=== PATIENT | male | born 1940 | race Caucasian/White ===

== ENCOUNTER 2019-02-27 06:51 | Day surgery (SDC) | payer MEDICARE, OTHER ==
[2019-02-26 12:13] LABS: BASOPHILS % (AUTO) 0.3 % (0-1); EOSINOPHILS # (AUTO) 0.1 X10'3 (0-0.9); EOSINOPHILS % (AUTO) 1.2 % (0-6); HEMATOCRIT 47.4 % (42.0-52.0); LYMPHOCYTES # (AUTO) 0.5 X10'3 (1.1-4.8); LYMPHOCYTES % (AUTO) 10.5 % (21-51); MEAN CORPUSCULAR HEMOGLOBIN 33.1 PG (27.0-31.0); MEAN CORPUSCULAR HGB CONC 33.8 g/dL (33.0-36.5); MEAN CORPUSCULAR VOLUME 97.9 FL (78-98); MEAN PLATELET VOLUME 7.8 FL (7.4-10.4); MONOCYTES # (AUTO) 0.4 X10'3 (0-0.9); MONOCYTES % (AUTO) 7.8 % (2-12); NEUTROPHILS # (AUTO) 3.8 X10'3 (1.8-7.7); NEUTROPHILS % (AUTO) 80.2 % (42-75); PLATELET COUNT 190 X10'3 (140-440); RED BLOOD COUNT 4.84 X10'6 (4.70-6.10); RED CELL DISTRIBUTION WIDTH 13.7 % (11.5-14.5); WHITE BLOOD COUNT 4.8 X10'3 (4.5-11.0)
[2019-02-26 12:23] LABS: ALBUMIN 3.7 G/DL (3.4-5.0); ANION GAP 6 (8-16); BLOOD UREA NITROGEN 16 MG/DL (7-18); BUN/CREATININE RATIO 13.3 (5.4-32.0); CALCIUM 8.8 MG/DL (8.5-10.1); CHLORIDE 106 MMOL/L (99-107); GLUCOSE 93 MG/DL (70-104); POTASSIUM 4.6 MMOL/L (3.5-5.1); SODIUM 142 MMOL/L (135-145); TOTAL CARBON DIOXIDE 30.1 MMOL/L (24-32); eGFR 58 ML/MIN
[~2019-02-27] VITALS: Ht 180.3 cm; Wt 79.1 kg
[2019-02-27] VITALS (12 sets, daily range): BP systolic 109–167; BP diastolic 70–101
[2019-02-27] MEDS ORDERED: amiodarone in dextrose, iso-osm 150mg/100ml bag IV ONE (07:10)
[2019-02-27] MEDS ORDERED: LORazepam 0.5 MG tablet PO ONE (07:10)
[2019-02-27] MEDS ORDERED: normal saline 1000ml 1,000 ML IV SCH (07:10)
[2019-02-27] MEDS ORDERED: atropine 0.1mg/ml 10ml syringe IV ONE (07:10)
[2019-02-27] MEDS ORDERED: diphenhydrAMINE 25mg capsule PO ONE (07:10)
[2019-02-27] MEDS ORDERED: MIDAZolam 5mg/ml 2ml vial IV ONE (07:25)
[2019-02-27] MEDS ORDERED: morphine 10mg/ml inj. IV ONE (07:25)
[2019-02-27] MEDS ORDERED: AMIO200T61 PO (08:06)
[2019-02-27] MEDS ORDERED: GLUC1TAB21 PO (08:06)
[2019-02-27] MEDS ORDERED: MULT-1085 PO (08:06)
[2019-02-27] MEDS ORDERED: CHOL200012 PO (08:06)
[2019-02-27] MEDS ORDERED: APIX2.5T PO (08:06)
[2019-02-27] MEDS ORDERED: MAGN400C PO (08:06)
[2019-02-27] MEDS ORDERED: OMEG1CAP13 PO (08:06)
[2019-02-27] MEDS ORDERED: ATOR10TA PO (08:06)
== END 2019-02-27 10:55 | disposition home or self-care (01) ==
LOC: SSTAY O 06:51
PROVIDERS: ATTEND Internal Medicine Cardiovascular Disease
DX: I48.1 Persistent atrial fibrillation (principal); I48.92 Unspecified atrial flutter; E78.5 Hyperlipidemia, unspecified; I49.5 Sick sinus syndrome; Z85.828 Personal history of other malignant neoplasm of skin; Z98.890 Other specified postprocedural states; Z79.899 Other long term (current) drug therapy; Z72.89 Other problems related to lifestyle
CPT/HCPCS: 36415; 80048; 85025; 85610; 92960; 93005; J0282; J0461; J2250; J2270; J7030; Q0163

== ENCOUNTER 2019-11-06 15:36 | Outpatient (CLI) | payer MEDICARE, OTHER ==
[~2019-11-06 15:36] MED LIST: AMIO200T61 PO; APIX2.5T PO; ATOR10TA PO; CHOL200012 PO; GLUC1TAB21 PO; MAGN400C PO; MULT-1085 PO; OMEG1CAP13 PO
[2019-11-06 16:21] LABS: TOTAL HEMOGLOBIN 14.6 G/dl (14.0-17.9)
== END 2019-11-06 23:59 | disposition home or self-care (01) ==
LOC: RT 15:36
PROVIDERS: ATTEND Internal Medicine Cardiovascular Disease
DX: I48.91 Unspecified atrial fibrillation (principal); K44.9 Diaphragmatic hernia without obstruction or gangrene; Z79.899 Other long term (current) drug therapy
CPT/HCPCS: 71046; 85018; 94010; 94727; 94729

== ENCOUNTER 2022-01-27 06:05 | Day surgery (SDC) | payer MEDICARE, OTHER ==
[2022-01-26 10:37] LABS: ALBUMIN 3.7 G/DL (3.4-5.0); ANION GAP 10 (8-16); BLOOD UREA NITROGEN 19 MG/DL (7-18); BUN/CREATININE RATIO 17.8 (5.4-32.0); CALCIUM 8.6 MG/DL (8.5-10.1); CHLORIDE 108 MMOL/L (99-107); CREATININE 1.07 MG/DL (0.60-1.10); GLUCOSE 96 MG/DL (70-104); POTASSIUM 4.6 MMOL/L (3.5-5.1); SODIUM 144 MMOL/L (135-145); TOTAL CARBON DIOXIDE 26.3 MMOL/L (24-32); eGFR 66 ML/MIN
[2022-01-26 10:42] LABS: BASOPHILS % (AUTO) 0.4 % (0-1); EOSINOPHILS % (AUTO) 0.7 % (0-6); HEMATOCRIT 39.9 % (42.0-52.0); HEMOGLOBIN 13.5 g/dl (14.0-17.9); LYMPHOCYTES # (AUTO) 0.6 X10'3 (1.1-4.8); LYMPHOCYTES % (AUTO) 12.8 % (21-51); MEAN CORPUSCULAR HGB CONC 33.8 g/dL (33.0-36.5); MEAN CORPUSCULAR VOLUME 97.7 FL (78-98); MEAN PLATELET VOLUME 7.1 FL (7.4-10.4); MONOCYTES # (AUTO) 0.4 X10'3 (0-0.9); MONOCYTES % (AUTO) 8.8 % (2-12); NEUTROPHILS # (AUTO) 3.8 X10'3 (1.8-7.7); NEUTROPHILS % (AUTO) 77.3 % (42-75); PLATELET COUNT 171 X10'3 (140-440); RED BLOOD COUNT 4.09 X10'6 (4.70-6.10); RED CELL DISTRIBUTION WIDTH 13.4 % (11.5-14.5); WHITE BLOOD COUNT 4.9 X10'3 (4.5-11.0)
[2022-01-26 10:48] LABS: APTT 24 SECONDS (22-32)
[2022-01-27] VITALS (10 sets, daily range): BP systolic 123–169; BP diastolic 67–87
[~2022-01-27] VITALS: Ht 180.3 cm; Wt 78.7 kg
[2022-01-27] MEDS ORDERED: LORazepam 0.5 MG tablet PO PRN (06:25)
[2022-01-27] MEDS ORDERED: diphenhydrAMINE 25mg capsule PO PRN (06:25)
[2022-01-27] MEDS ORDERED: normal saline 1,000 ML IV SCH (06:25)
[2022-01-27] MEDS ORDERED: LIDOcaine/PRILOcaine 5gm cream TP ONE (06:55)
[2022-01-27] MEDS ORDERED: CYAN1TAB65 SL (07:11)
[2022-01-27] MEDS ORDERED: DOCU-21 PO (07:11)
[2022-01-27] MEDS ORDERED: QUER1POW PO (07:11)
[2022-01-27] MEDS ORDERED: DIPH-907 PO (07:11)
[2022-01-27] MEDS ORDERED: VITA800012 PO (07:11)
[2022-01-27] MEDS ORDERED: SAW/1TAB2 PO (07:11)
[2022-01-27] MEDS ORDERED: LACT1CAP65 PO (07:11)
[2022-01-27] MEDS ORDERED: APIX5TAB3 PO (07:11)
[2022-01-27] MEDS ORDERED: ASCO500C17 PO (07:11)
[2022-01-27] MEDS ORDERED: UBID30CA11 PO (07:11)
[2022-01-27] MEDS ORDERED: [UNRECOGNIZED DRUG - CODE] PO (07:11)
[2022-01-27] MEDS ORDERED: VITA15LO2 PO (07:11)
[2022-01-27] MEDS ORDERED: heparin 1,000unit/ml 10ml vial 10 ML ONE (07:21)
[2022-01-27] MEDS ORDERED: nitroGLYCERIN-Tridil 50MG/D5W 250 ML IV ONE (07:21)
[2022-01-27] MEDS ORDERED: fentaNYL/PF 50MCG/1 ML 2ML syringe ONE (07:21)
[2022-01-27] MEDS ORDERED: midazolam 1 mg/ML 2ml injection ONE (07:21)
[2022-01-27] MEDS ORDERED: LIDOcaine 1%/PF 5ML 10 MG/ML VIAL ONE (07:21)
[2022-01-27] MEDS ORDERED: verapamil 2.5 mg/ml inj IV ONE (07:21)
[2022-01-27] MEDS ORDERED: iohexol 350MG/ML 100ml bottle IV ONE (07:22)
[2022-01-27] MEDS ORDERED: normal saline 1000ml 1,000 ML IV SCH (09:15)
== END 2022-01-27 12:45 | disposition home or self-care (01) ==
LOC: SSTAY O 06:05
PROVIDERS: ATTEND Internal Medicine Cardiovascular Disease
DX: R94.39 Abnormal result of other cardiovascular function study (principal); I25.10 Atherosclerotic heart disease of native coronary artery without angina pectoris; E78.5 Hyperlipidemia, unspecified; I48.91 Unspecified atrial fibrillation; I08.1 Rheumatic disorders of both mitral and tricuspid valves; I48.0 Paroxysmal atrial fibrillation; I49.5 Sick sinus syndrome; Z79.01 Long term (current) use of anticoagulants; Z79.899 Other long term (current) drug therapy; Z98.890 Other specified postprocedural states; Z82.49 Family history of ischemic heart disease and other diseases of the circulatory system
CPT/HCPCS: 36415; 76937; 80048; 85025; 85610; 85730; 93005; 93458; 99152; A6258; C1769; C1894; J1644; J2250; J3010; J3490; J7030; Q0163; Q9967; 99153; A4620; A5120; A6402

== ENCOUNTER 2024-02-28 07:00 | Day surgery (SDC) | payer MEDICARE ==
[2024-02-27 14:22] LABS: BASOPHILS % (AUTO) 0.4 % (0-1); EOSINOPHILS # (AUTO) 0.1 X10'3 (0-0.9); EOSINOPHILS % (AUTO) 1.4 % (0-6); HEMATOCRIT 39.8 % (42.0-52.0); HEMOGLOBIN 13.2 g/dl (14.0-17.9); LYMPHOCYTES # (AUTO) 0.8 X10'3 (1.1-4.8); LYMPHOCYTES % (AUTO) 12.6 % (21-51); MEAN CORPUSCULAR HEMOGLOBIN 31.8 PG (27.0-31.0); MEAN CORPUSCULAR VOLUME 96.3 FL (78-98); MEAN PLATELET VOLUME 7.2 FL (7.4-10.4); MONOCYTES # (AUTO) 0.5 X10'3 (0-0.9); MONOCYTES % (AUTO) 8.6 % (2-12); NEUTROPHILS # (AUTO) 4.6 X10'3 (1.8-7.7); PLATELET COUNT 216 X10'3 (140-440); RED BLOOD COUNT 4.14 X10'6 (4.70-6.10); RED CELL DISTRIBUTION WIDTH 15.2 % (11.5-14.5)
[2024-02-27 14:24] LABS: ALBUMIN 3.6 G/DL (3.4-5.0); ANION GAP 6 (8-16); BLOOD UREA NITROGEN 18 MG/DL (7-18); BUN/CREATININE RATIO 17.3 (10.0-20.0); CALCIUM 8.8 MG/DL (8.5-10.1); CHLORIDE 107 MMOL/L (99-107); CREATININE 1.04 MG/DL (0.60-1.10); GLUCOSE 105 MG/DL (70-104); POTASSIUM 4.4 MMOL/L (3.5-5.1); SODIUM 141 MMOL/L (135-145); TOTAL CARBON DIOXIDE 28.4 MMOL/L (24-32); eGFR 68 ML/MIN
[2024-02-27 14:27] LABS: PROTHROMBIN TIME 10.9 SECONDS (9.0-12.0)
[2024-02-28] VITALS (13 sets, daily range): BP systolic 93–161; BP diastolic 60–110; PULSE 44–97; RESP 16; TEMP 97.9; O2SAT 98–99
[~2024-02-28] VITALS: Ht 177.8 cm; Wt 78.2 kg
[~2024-02-28 07:00] MED LIST changes: +AMI200T PO; -AMIO200T61 PO; -APIX2.5T PO; +APIX5TAB3 PO; +ASCO500C17 PO; +CYAN1TAB65 SL; +DIPH-964 PO; +DOCU-21 PO; -GLUC1TAB21 PO; +LACT1CAP65 PO; -OMEG1CAP13 PO; +QUER1POW PO; +SAW/1TAB2 PO; +UBID30CA11 PO; +VITA15LO2 PO; +VITA800012 PO; +[UNRECOGNIZED DRUG - CODE] PO
[2024-02-28] MEDS ORDERED: FLEC100T35 PO (07:14)
[2024-02-28] MEDS ORDERED: normal saline 1000ml 1,000 ML IV SCH (07:15)
[2024-02-28] MEDS ORDERED: diphenhydrAMINE 25mg capsule PO ONE (07:15)
[2024-02-28] MEDS ORDERED: CARV3.1246 PO (07:15)
[2024-02-28] MEDS ORDERED: atropine 0.1mg/ml 10ml syringe IV ONE (07:15)
[2024-02-28] MEDS ORDERED: LORazepam 0.5 MG tablet PO ONE (07:15)
[2024-02-28] MEDS ORDERED: ROSU20TA73 PO (07:16)
[2024-02-28] MEDS ORDERED: LEVO75TA7 PO (07:16)
[2024-02-28] MEDS: amiodarone 150mg/dext, iso-os 100 ML IV ONE (09:35)
[2024-02-28] MEDS: morphine 10mg/ml inj. IV ONE (09:36)
[2024-02-28] MEDS: MIDAZolam 1mg/ml 10ml vial IV ONE (09:36)
== END 2024-02-28 10:45 | disposition home or self-care (01) ==
LOC: SSTAY O 07:00
PROVIDERS: ATTEND Internal Medicine Cardiovascular Disease
DX: I48.92 Unspecified atrial flutter (principal); I48.0 Paroxysmal atrial fibrillation; I25.10 Atherosclerotic heart disease of native coronary artery without angina pectoris; E78.5 Hyperlipidemia, unspecified; Z79.82 Long term (current) use of aspirin; Z79.890 Hormone replacement therapy; Z79.899 Other long term (current) drug therapy; Z98.890 Other specified postprocedural states; Z82.49 Family history of ischemic heart disease and other diseases of the circulatory system
CPT/HCPCS: 36415; 80048; 85025; 85610; 92960; 93005; J0282; J2250; J2270; J7030; Z7610; J2274

== ENCOUNTER 2024-07-30 07:59 | Day surgery (SDC) | payer MEDICARE, OTHER ==
[~2024-07-30] VITALS: Ht 177.8 cm; Wt 77.6 kg
[2024-07-30] VITALS (10 sets, daily range): BP systolic 102–161; BP diastolic 67–99; PULSE 45–76; RESP 16; TEMP 98.4; O2SAT 94–99
[~2024-07-30 07:59] MED LIST changes: -AMI200T PO; -ATOR10TA PO; +CARV3.1246 PO; -DIPH-964 PO; +FLEC100T35 PO; +LEVO75TA7 PO; +ROSU20TA98 PO; -SAW/1TAB2 PO; -VITA15LO2 PO; -[UNRECOGNIZED DRUG - CODE] PO
[2024-07-30] MEDS ORDERED: LEVO100T78 PO (08:27)
[2024-07-30] MEDS ORDERED: diphenhydrAMINE 25mg capsule PO ONE (08:30)
[2024-07-30] MEDS ORDERED: amiodarone 150mg/dext, iso-os 100 ML IV ONE (08:30)
[2024-07-30] MEDS ORDERED: LORazepam 0.5 MG tablet PO ONE (08:30)
[2024-07-30 08:50] LABS: BASOPHILS % (AUTO) 0.5 % (0-1); EOSINOPHILS # (AUTO) 0.2 X10'3 (0-0.9); EOSINOPHILS % (AUTO) 3.4 % (0-6); HEMATOCRIT 39.7 % (42.0-52.0); HEMOGLOBIN 13.2 g/dl (14.0-17.9); LYMPHOCYTES # (AUTO) 0.6 X10'3 (1.1-4.8); LYMPHOCYTES % (AUTO) 12.7 % (21-51); MEAN CORPUSCULAR HEMOGLOBIN 32.6 PG (27.0-31.0); MEAN CORPUSCULAR HGB CONC 33.4 g/dL (33.0-36.5); MEAN CORPUSCULAR VOLUME 97.8 FL (78-98); MEAN PLATELET VOLUME 7.4 FL (7.4-10.4); MONOCYTES # (AUTO) 0.5 X10'3 (0-0.9); MONOCYTES % (AUTO) 9.6 % (2-12); NEUTROPHILS # (AUTO) 3.5 X10'3 (1.8-7.7); NEUTROPHILS % (AUTO) 73.8 % (42-75); PLATELET COUNT 206 X10'3 (140-440); RED BLOOD COUNT 4.05 X10'6 (4.70-6.10); RED CELL DISTRIBUTION WIDTH 13.8 % (11.5-14.5); WHITE BLOOD COUNT 4.8 X10'3 (4.5-11.0)
[2024-07-30 09:05] LABS: APTT 27 SECONDS (22-32); INR 1.1 INR; PROTHROMBIN TIME 11.9 SECONDS (9.0-12.0)
[2024-07-30 09:07] LABS: ALBUMIN 3.5 G/DL (3.4-5.0); ANION GAP 5 (8-16); BLOOD UREA NITROGEN 23 MG/DL (7-18); BUN/CREATININE RATIO 23.2 (10.0-20.0); CALCIUM 8.8 MG/DL (8.5-10.1); CHLORIDE 110 MMOL/L (99-107); CREATININE 0.99 MG/DL (0.60-1.10); GLUCOSE 90 MG/DL (70-104); POTASSIUM 4.3 MMOL/L (3.5-5.1); SODIUM 143 MMOL/L (135-145); eCRCL 57 ML/MIN; eGFR 72 ML/MIN
[2024-07-30] MEDS: normal saline 1000ml 1,000 ML IV SCH (10:35)
[2024-07-30] MEDS: MIDAZolam 1mg/ml 10ml vial IV ONE (10:35)
[2024-07-30] MEDS: morphine 10mg/ml inj. IV ONE (10:35)
[2024-07-30] MEDS: atropine 0.1mg/ml 10ml syringe IV ONE (10:35)
== END 2024-07-30 11:35 | disposition home or self-care (01) ==
LOC: SSTAY O 07:59
PROVIDERS: ATTEND Internal Medicine Cardiovascular Disease
DX: I48.0 Paroxysmal atrial fibrillation (principal); E78.5 Hyperlipidemia, unspecified; I10 Essential (primary) hypertension; I25.10 Atherosclerotic heart disease of native coronary artery without angina pectoris; I35.0 Nonrheumatic aortic (valve) stenosis; I49.5 Sick sinus syndrome; I44.7 Left bundle-branch block, unspecified; Z86.79 Personal history of other diseases of the circulatory system; Z79.899 Other long term (current) drug therapy
CPT/HCPCS: 36415; 80048; 85025; 85610; 85730; 92960; 93005; J0461; J2250; J2270; J7030; J2274